=== PATIENT | male | born 1975 | race Caucasian/White ===

== ENCOUNTER 2019-11-12 18:04 | Outpatient (REF) | payer OTHER, SELFPAY ==
[2019-11-12 21:59] LABS: HGB 17.4 g/dL (13.5-17.5); Mean Corp. HGB Concentration 33.5 g/dL (32.0-36.0); Mean Corpuscular Hemoglobin 29.1 pg (27.0-33.0); Mean Platelet Volume 9.7 fL (8.0-11.0); Platelet Count 345 x1000/uL (130-400); RBC 5.98 m/cumm (4.50-6.00); RBC Distribution Width 12.5 % (11.8-14.1); White Blood Cell Count 8.36 k/cumm (4.4-10.8)
[2019-11-12 22:26] LABS: ALT 101 U/L (16-63); AST 46 U/L (15-37); Albumin 4.1 g/dL (3.4-5.0); Alkaline Phosphatase 87 U/L (46-116); Anion Gap 9.4 mmol/L (3-11); BUN 7 mg/dL (7-18); Bilirubin, Total 0.9 mg/dL (0.2-1.0); CO2 28.6 mmol/L (21.0-32.0); Calcium 9.4 mg/dL (8.5-10.1); Chloride 102 mmol/L (98-107); Glucose 93 mg/dL (74-106); Lipase 58 U/L (73-393); Potassium 4.1 mmol/L (3.5-5.1); Sodium 140 mmol/L (136-145)
== END 2019-11-12 18:24 ==
LOC: NCHCN 18:04
PROVIDERS: Visit Provider Physician Assistant
DX: F10.10 Alcohol abuse, uncomplicated (principal); K29.00 Acute gastritis without bleeding
CPT/HCPCS: 80053; 83690; 85027; 85610

== ENCOUNTER 2019-11-19 03:02 | Outpatient (CLI) | payer OTHER, SELFPAY ==
[2019-11-19 16:20] LABS: INR 1.1 (0.9-1.1); Prothrombin Time 10.8 sec (9.3-11.0)
== END 2019-11-19 03:22 ==
PROVIDERS: PCP Physician Assistant; Visit Provider Physician Assistant
DX: R79.89 Other specified abnormal findings of blood chemistry (principal); K29.00 Acute gastritis without bleeding; F10.10 Alcohol abuse, uncomplicated
CPT/HCPCS: 36415; 85610

== ENCOUNTER 2019-12-16 08:45 | Outpatient (REF) | payer OTHER, SELFPAY ==
[2019-12-16 21:03] LABS: ALT 83 U/L (16-63); AST 27 U/L (15-37); Albumin 3.8 g/dL (3.4-5.0); Alkaline Phosphatase 71 U/L (46-116); Anion Gap 9.8 mmol/L (3-11); BUN 11 mg/dL (7-18); Bilirubin, Total 0.5 mg/dL (0.2-1.0); CO2 24.2 mmol/L (21.0-32.0); CREATININE 1.07 mg/dL (0.70-1.30); Calcium 9.2 mg/dL (8.5-10.1); Chloride 106 mmol/L (98-107); Glucose 114 mg/dL (74-106); Potassium 4.3 mmol/L (3.5-5.1); Sodium 140 mmol/L (136-145)
== END 2019-12-16 09:05 ==
LOC: NCHCN 08:45
PROVIDERS: PCP Physician Assistant; Visit Provider Physician Assistant
DX: R79.89 Other specified abnormal findings of blood chemistry (principal)
CPT/HCPCS: 80053

== ENCOUNTER 2020-04-14 08:38 | Outpatient (CLI) | payer OTHER, SELFPAY ==
[2020-04-14 20:18] LABS: COVID-19 RT-PCR UVMMC Result Negative (Negative)
== END 2020-04-14 08:58 ==
PROVIDERS: PCP Physician Assistant; Visit Provider Nurse Practitioner Family
DX: Z11.59 Encounter for screening for other viral diseases (principal)
CPT/HCPCS: U0003

== ENCOUNTER 2022-05-25 16:45 | Outpatient (REF) | payer OTHER, SELFPAY ==
[2022-05-25 21:37] LABS: ALT 82 U/L (16-63); AST 30 U/L (15-37); Albumin 4.5 g/dL (3.4-5.0); Alkaline Phosphatase 84 U/L (46-116); Anion Gap 10.4 mmol/L (3-11); BUN 12 mg/dL (7-18); Bilirubin, Total 0.7 mg/dL (0.2-1.0); CO2 29.6 mmol/L (21.0-32.0); CREATININE 1.3 mg/dL (0.70-1.30); Calcium 9.6 mg/dL (8.5-10.1); Chloride 102 mmol/L (98-107); Estimated GFR 69.04 (mL/min/1.73m2); Glucose 87 mg/dL (74-106); Potassium 4.8 mmol/L (3.5-5.1); Sodium 142 mmol/L (136-145); Total Protein 8.2 g/dL (6.4-8.2)
[2022-05-25 21:50] LABS: Calculated LDL 219 mg/dL (<100); Cholesterol 294 mg/dL (<200); HDL Cholesterol 55 mg/dL (40-60); Triglyceride 104 mg/dL (<150)
== END 2022-05-25 16:46 | disposition home or self-care (01) ==
LOC: NCHCN 16:45
PROVIDERS: PCP Physician Assistant; Visit Provider Family Medicine
DX: R79.89 Other specified abnormal findings of blood chemistry (principal); E78.00 Pure hypercholesterolemia, unspecified
CPT/HCPCS: 80053; 80061

== ENCOUNTER 2022-06-21 15:20 | Outpatient (REF) | payer OTHER, SELFPAY ==
--- NOTE | 2022-06-21 14:00 | SKI_PTH ---
PATIENT: Niko Epstein LOC: [facility] U#:[id number] AGE/SX: 46/M ROOM: RE06/21/[address]: Jazmine Vega : 1975 BED: DIS: 06/21/2022 SPEC #: [id number] RECD: 06/22/22 12:46 STATUS: LENA REMary Ellen #: [id number] MERNA: 06/21/22 14:[address]: Jazmine Vega DEPT: Surgical Specimen RECD BY: Ingris Mccall ENTERED: 06/22/22 12:47 SP TYPE: THERESA JARA DR: Power Clark Tissues: 1 - SKIN BIOPSY(SHAVE/PUNCH) Procedures: SKIN LEVEL 4 Comments: [id number]
[2022-06-21 20:59] LABS: HCT 53.4 % (40.0-50.0); HGB 17.4 g/dL (13.5-17.5); MCH 28.4 pg (27.0-33.0); MCHC 32.6 % (32.0-36.0); MCV 87 fL (80-95); MPV 9.8 fL (8.0-11.0); Platelet Count 324 10^3/uL (130-400); RBC 6.13 10^6/uL (4.36-5.78); RDW 11.9 % (11.8-14.1)
[2022-06-21 21:23] LABS: Ferritin 246 ng/mL (26-388)
[2022-06-21 22:10] LABS: Iron 89 ug/dL (65-175); Total Iron Binding Capacity 348 ug/dL (250-450); Transferrin Sat 26 % (20-55)
[2022-06-26 14:55] LABS: HBs Antibody, Quant <3.1 mIU/mL (See Note); Hepatitis B Surface Ab Negative (See Note)
[2022-06-26 15:02] LABS: Hepatitis B Surface Ag Negative (Negative)
[2022-06-26 15:37] LABS: Hep B Core Antibody Negative (Negative)
== END 2022-06-21 15:21 | disposition home or self-care (01) ==
LOC: NCHCN 15:20
PROVIDERS: PCP Physician Assistant; Visit Provider Family Medicine
DX: D22.5 Melanocytic nevi of trunk (principal); E78.00 Pure hypercholesterolemia, unspecified; R03.0 Elevated blood-pressure reading, without diagnosis of hypertension; F10.10 Alcohol abuse, uncomplicated; R79.89 Other specified abnormal findings of blood chemistry; D48.5 Neoplasm of uncertain behavior of skin
CPT/HCPCS: 85027; 86704; 86706; 87340; 82728; 83540; 83550; 88305

== ENCOUNTER 2022-10-26 10:21 | Outpatient (REF) | payer OTHER, SELFPAY ==
[2022-10-26 15:30] LABS: ALT 110 U/L (16-63); AST 37 U/L (15-37); Albumin 4.2 g/dL (3.4-5.0); Alkaline Phosphatase 90 U/L (46-116); BUN 11 mg/dL (7-18); Bilirubin, Total 0.5 mg/dL (0.2-1.0); CREATININE 1.1 mg/dL (0.70-1.30); Calcium 9.5 mg/dL (8.5-10.1); Chloride 108 mmol/L (98-107); Estimated GFR 83.84 (mL/min/1.73m2); Glucose 102 mg/dL (74-106); Potassium 5.1 mmol/L (3.5-5.1); Sodium 147 mmol/L (136-145); Total Protein 7.7 g/dL (6.4-8.2)
[2022-10-26 16:10] LABS: Calculated LDL 101 mg/dL (<100); Cholesterol 162 mg/dL (<200); HDL Cholesterol 47 mg/dL (40-60); Triglyceride 74 mg/dL (<150)
== END 2022-10-26 10:22 | disposition home or self-care (01) ==
LOC: NCHCN 10:21
PROVIDERS: PCP Physician Assistant; Visit Provider Family Medicine
DX: K76.0 Fatty (change of) liver, not elsewhere classified (principal); E78.00 Pure hypercholesterolemia, unspecified; R03.0 Elevated blood-pressure reading, without diagnosis of hypertension
CPT/HCPCS: 80053; 80061

== ENCOUNTER 2022-11-28 16:02 | Outpatient (REF) | payer OTHER, SELFPAY ==
[2022-11-28 21:35] LABS: ALT 99 U/L (16-63); AST 33 U/L (15-37); Albumin 4.4 g/dL (3.4-5.0); Alkaline Phosphatase 95 U/L (46-116); Anion Gap 10.1 mmol/L (3-11); BUN 11 mg/dL (7-18); Bilirubin, Total 0.6 mg/dL (0.2-1.0); CO2 29.9 mmol/L (21.0-32.0); CREATININE 1.1 mg/dL (0.70-1.30); Calcium 9.6 mg/dL (8.5-10.1); Chloride 103 mmol/L (98-107); Estimated GFR 83.84 (mL/min/1.73m2); Glucose 79 mg/dL (74-106); Potassium 4.3 mmol/L (3.5-5.1); Sodium 143 mmol/L (136-145); Total Protein 7.9 g/dL (6.4-8.2)
== END 2022-11-28 16:03 | disposition home or self-care (01) ==
LOC: NCHCN 16:02
PROVIDERS: PCP Physician Assistant; Visit Provider Family Medicine
DX: R79.89 Other specified abnormal findings of blood chemistry (principal)
CPT/HCPCS: 80053

== ENCOUNTER 2023-06-07 16:49 | Outpatient (REF) | payer OTHER, SELFPAY ==
[2023-06-07 22:22] LABS: ALT 68 U/L (16-63); AST 30 U/L (15-37); Albumin 3.9 g/dL (3.4-5.0); Alkaline Phosphatase 74 U/L (46-116); Anion Gap 8.8 mmol/L (3-11); BUN 12 mg/dL (7-18); Bilirubin, Total 0.6 mg/dL (0.2-1.0); CO2 27.2 mmol/L (21.0-32.0); CREATININE 1.2 mg/dL (0.70-1.30); Calculated LDL 75 mg/dL (<100); Chloride 103 mmol/L (98-107); Cholesterol 147 mg/dL (<200); Estimated GFR 75.53 (mL/min/1.73m2); Glucose 111 mg/dL (74-106); HDL Cholesterol 42 mg/dL (40-60); Sodium 139 mmol/L (136-145); Total Protein 7.8 g/dL (6.4-8.2); Triglyceride 150 mg/dL (<150)
== END 2023-06-07 16:50 | disposition home or self-care (01) ==
LOC: NCHCN 16:49
PROVIDERS: PCP Physician Assistant; Visit Provider Family Medicine
DX: Z13.6 Encounter for screening for cardiovascular disorders (principal); K76.0 Fatty (change of) liver, not elsewhere classified
CPT/HCPCS: 80053; 80061

== ENCOUNTER 2024-12-02 20:38 | Outpatient (REF) | payer OTHER, SELFPAY ==
[2024-12-02 20:51] LABS: Abs Immature Grans 0.03 10^3/uL (0.0-0.06); HCT 48.7 % (40.0-50.0); HGB 16.4 g/dL (13.5-17.5); Immature Grans % 0.3 %; MCH 28.5 pg (27.0-33.0); MCHC 33.7 % (32.0-36.0); MCV 85 fL (80-95); MPV 9.4 fL (8.0-11.0); Platelet Count 323 10^3/uL (130-400); RBC 5.76 10^6/uL (4.36-5.78); RDW 11.9 % (11.8-14.1); RDW-SD 36.4 fL; WBC 9.98 10^3/uL (4.4-10.8)
[2024-12-02 21:27] LABS: ALT 58 U/L (16-63); AST 20 U/L (15-37); Albumin 4.2 g/dL (3.4-5.0); Alkaline Phosphatase 85 U/L (46-116); Anion Gap 7.2 mmol/L (3-11); BUN 13 mg/dL (7-18); Bilirubin, Total 0.6 mg/dL (0.2-1.0); CO2 30.8 mmol/L (21.0-32.0); Calcium 9.5 mg/dL (8.5-10.1); Calculated LDL 140 mg/dL (<100); Chloride 102 mmol/L (98-107); Cholesterol 234 mg/dL (<200); Estimated GFR 92.84 (mL/min/1.73m2); Glucose 86 mg/dL (74-106); HDL Cholesterol 45 mg/dL (>or=40); Potassium 4.2 mmol/L (3.5-5.1); Sodium 140 mmol/L (136-145); TSH (W/Ref FT4) 1.06 uIU/mL (0.36-3.74); Total Protein 7.6 g/dL (6.4-8.2); Triglyceride 249 mg/dL (<150); Vitamin D 25 Total 19 ng/mL (30-100)
== END 2024-12-02 20:39 | disposition home or self-care (01) ==
LOC: NCHCN 20:38
PROVIDERS: PCP Physician Assistant; Visit Provider Family Medicine
DX: E78.00 Pure hypercholesterolemia, unspecified (principal); K76.0 Fatty (change of) liver, not elsewhere classified; R53.83 Other fatigue
CPT/HCPCS: 80053; 80061; 82306; 84443; 85025